=== PATIENT | male | born 1935 | race Caucasian/White ===

== ENCOUNTER 2020-01-23 13:58 | Inpatient (IN) | payer MEDICARE ==
[~2020-01-23] VITALS: Ht 162.6 cm; Wt 72.0 kg
[2020-01-23] MEDS ORDERED: SPIRONOLACTONE25 MG PO (14:13)
[2020-01-23 14:36] LABS: BASOPHILS ABSOLUTE AUTO 0.07 K/mm3 (0.00-0.23); BASOPHILS PERCENT AUTO 1 % (0-2); EOSINOPHILS PERCENT AUTO 2 % (0-6); Hematocrit 50.2 % (37.0-53.0); IMMATURE GRAN ABSOLUTE AUTO 0.03 K/mm3 (0.00-0.10); IMMATURE GRAN PERCENT AUTO 0 % (0-1); LYMPHOCYTES ABSOLUTE AUTO 2.21 K/mm3 (0.84-5.20); LYMPHOCYTES PERCENT AUTO 24 % (21-46); MONOCYTES ABSOLUTE AUTO 0.79 K/mm3 (0.16-1.47); MONOCYTES PERCENT AUTO 9 % (4-13); Mean Corpuscular HGB 27.7 pg (26.0-34.0); Mean Corpuscular HGB Conc 31.9 g/dL (31.5-36.5); Mean Corpuscular Volume 87 fL (80-100); Mean Platelet Volume 11.5 fL (9.1-12.4); NEUTROPHILS ABSOLUTE AUTO 5.82 K/mm3 (1.96-9.15); NEUTROPHILS PERCENT AUTO 64 % (41-73); Platelet Count 167 K/mm3 (150-400); RDW Coefficient Variation 14.8 % (11.7-14.2); RDW Standard Deviation 47.4 fL (35.1-46.3); Red Blood Cell Count 5.77 M/mm3 (4.30-5.90); White Blood Cell Count 9.12 K/mm3 (4.00-11.30)
[2020-01-23 14:46] LABS: Alanine Aminotransfer (ALT/SGP 21 U/L (12-78); Albumin, Blood 3.4 g/dL (3.4-5.0); Albumin/Globulin Ratio 0.9 (0.8-1.8); Alk Phos 75 U/L (50-136); Anion Gap 13 mmol/L (6-16); Aspartate Aminotrans (AST/SGOT 26 U/L (12-37); Bilirubin, Total 0.7 mg/dL (0.1-1.0); Blood Urea Nitrogen 21 mg/dL (8-24); Bun/Creatinine Ratio 13.2 (12.0-20.0); CO2, Blood 20 mmol/L (21-32); Chloride, Blood 112 mmol/L (98-108); Creatinine, Blood 1.59 mg/dL (0.60-1.20); Globulin, Blood 3.6 g/dL (2.2-4.0); Glomerular Filtration Rate 45 (60-); Glucose, Blood 106 mg/dL (70-99); Potassium, Blood 4.4 mmol/L (3.5-5.5); Sodium, Blood 145 mmol/L (136-145); Troponin I <0.015 ng/mL (0.000-0.040)
--- NOTE | 2020-01-23 18:21 | NUR ---
PT ADMITTED PT ADMITTED IN STABLE CONDITION. VITALS TAKEN. PT ORIENTED TO ROOM. CALL LIGHT IN REACH. PT DENIES CP OR SOB AT THIS TIME. TELE IN PLACE. RUNNING SINUS KLEVER WITH PVCS AT MID 40S. WILL CONTINUE TO MONITOR UNTIL TURNOVER IS COMPLETE.
[2020-01-23] MEDS ORDERED: ASPI81CH PO (18:37)
[2020-01-24 02:12] LABS: BASOPHILS ABSOLUTE AUTO 0.07 K/mm3 (0.00-0.23); BASOPHILS PERCENT AUTO 1 % (0-2); EOSINOPHILS ABSOLUTE AUTO 0.25 K/mm3 (0.00-0.68); EOSINOPHILS PERCENT AUTO 3 % (0-6); Hematocrit 46.2 % (37.0-53.0); Hemoglobin 14.4 g/dL (13.5-17.5); IMMATURE GRAN ABSOLUTE AUTO 0.05 K/mm3 (0.00-0.10); IMMATURE GRAN PERCENT AUTO 1 % (0-1); LYMPHOCYTES ABSOLUTE AUTO 2.72 K/mm3 (0.84-5.20); LYMPHOCYTES PERCENT AUTO 31 % (21-46); MONOCYTES ABSOLUTE AUTO 0.74 K/mm3 (0.16-1.47); MONOCYTES PERCENT AUTO 8 % (4-13); Mean Corpuscular HGB 27.3 pg (26.0-34.0); Mean Corpuscular HGB Conc 31.2 g/dL (31.5-36.5); Mean Corpuscular Volume 88 fL (80-100); Mean Platelet Volume 11.2 fL (9.1-12.4); NEUTROPHILS ABSOLUTE AUTO 5.03 K/mm3 (1.96-9.15); NEUTROPHILS PERCENT AUTO 57 % (41-73); Platelet Count 150 K/mm3 (150-400); RDW Coefficient Variation 14.9 % (11.7-14.2); RDW Standard Deviation 47.8 fL (35.1-46.3); Red Blood Cell Count 5.28 M/mm3 (4.30-5.90); White Blood Cell Count 8.86 K/mm3 (4.00-11.30)
[2020-01-24 02:23] LABS: Bilirubin, Total 0.3 mg/dL (0.1-1.0); Bun/Creatinine Ratio 15.2 (12.0-20.0); Creatinine, Blood 1.32 mg/dL (0.60-1.20); Magnesium, Blood 2.2 mg/dL (1.6-2.4); Potassium, Blood 4.2 mmol/L (3.5-5.5); Troponin I 0.241 ng/mL (0.000-0.040)
--- NOTE | 2020-01-24 05:31 | NUR ---
SHIFT SUMMARY PT HAS BEEN BRADYCARDIC T/O SHIFT RUNNING MOSTLY IN 40'S BUT DIPPING TO 30'S OCCASIONALLY, CALLED TO NOTIFY DR BENDER @ 0100, NEW ORDERS REC AND ENTERED, PT STATES THAT HIS HR IS NORMALLY IN THE 40'S, PT HAS DENIES CP, SOB, DIZZINESS T/O SHIFT, SLEEPING AT THIS TIME, CALL LIGHT IN REACH, WILL CONT TO MONITOR UNTIL REPORT GIVEN TO DAY RN.
--- NOTE | 2020-01-24 11:03 | NUR ---
WAS HERE AT 0945 TO CONSULT ON PATIENT. PATIENT LEFT BY W/C TO PET TRAINING INSTRUCTOR FOR A PROCEDURE AT 10 AM. [facility] AWARE HE FINISHED HIS BREAKFAST AT 0830. HE HAD NO COMPLAINTS OF PAIN, DIZZINESS OR SOB. HE HOPED TO GO HOME TODAY SO WAS SURPRISED TO NEED A PROCEDURE. HE CALLED HIS FAMILY BEFORE HE LEFT. KNEE TEDS ON BILAT. TELE SB IN THE 40'S. SEE ASSESSMENT. HIS 1 LITER OF IVF FINISHED.
[2020-01-24 11:29] LABS: International Normalized Ratio 1.05; Prothrombin Time Results 11.2 Sec (9.7-11.5)
--- NOTE | 2020-01-24 13:34 | NUR ---
PT BP ELEVATED 170'S AND HR 30-40'S NOTIFIED DR LAUGHLIN; TO PLACE NEW ORDERS. WILL CONTINUE TO MONITOR.
--- NOTE | 2020-01-24 17:44 | NUR ---
SHIFT SUMMARY RECEIVIED REPORT FROM PATTY PHILLIPS FROM MEDICAL FLOOR AND BEDSIDE REPORT FROM JACQUARD LOOM FIXER. PT TO ROOM AT 1215 POST ANGIO WITH PCI X2 STENTS. PT ORIENTED TO ROOM AND CALL LIGHT; EDUCATED ON RIGHT ARM RESTRICTIONS AND ARM BOARD. BP ELEVATED, NOTIIFED DR LAUGHLIN; ADMINISTERED NORVASC. HR 30-40; DR BECKETT AND ELENI AWARE; NO NEW ORDERS. PT CONTINUES TO BE ASYMPTOMATIC WITH HR. RIGHT ULNER SITE C/D/I; NO BLEEDING, BRUISING OR HEMATOMA NOTED. SITE AND TR BAND RECOVERED PER PROTOCOL. PT DENIES PAIN, CHEST PAIN/PRESSURE, SOB, [place] DIZZINESS. OTHER VSS. NO OTHER ACUTE CHANGES NOTED WILL CONITNUE TO MONITOR.
--- NOTE | 2020-01-24 21:58 | NUR ---
ASSUMED CARE OF PATIENT AT [facility] 1910 FROM GITA Mark RN. PATIENT ALERT AND ORIENTED X4; SBA DUE TO RIGHT ULNER ACCESS ANGIOGRAM TODAY AND RESTRICTIONS; PATIENT EDUCATED AND AWARE OF RESTRICTIONS. TEGADERM PLACED TO RIGHT ULNAR SITE AT APPROXIMATELY 1940. PATIENT DENIES PAIN, NUMBNESS, TINGLING, DIZZINESS OR NAUSEA. 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 PIV S/L. PATIENT CURRENTLY RESTING IN BED; CALL LIGHT IN REACH; BED IN LOWEST POSISTION; WILL CONTINUE TO MONITOR AND ASSESS UNTIL END OF SHIFT.
--- NOTE | 2020-01-25 06:18 | NUR ---
NO ACUTE CHANGES TO REPORT. VSS. WILL CONTINUE TO MONITOR AND ASSESS UNTIL END OF SHIFT.
[2020-01-25] MEDS ORDERED: AMLO5 PO (09:44)
[2020-01-25] MEDS ORDERED: CLOP75 PO (09:45)
--- NOTE | 2020-01-25 12:01 | NUR ---
SHIFT SUMMARY PT A&Ox4; CALM AND COOPERATIVE WITH CARE. PT RESTING IN BED DURING SHIFT. UP IN ROOM IND. PT COMPLIANT WITH ACTIVITY RESTRICTIONS FOR RUE. RIGHR ULNER SITE C/D/I; SMALL BRUISING NOTED; NO BLEEDING NOTED. PER TELE PT HR CONTINUES AT 30-40'S; ASYMPTOMATIC. VSS. NO OTHER ACUTE CHANGES. PT EDUCATED ON DISCHARGE INTRUCTIONS, MEDICATIONS AND FOLLOW UP APPOINTMENTS. PT EDUCATED ON THE IMPORTANCE OF CONTINUEING PLAVIX AND ASPIRIN AND NOTE STOPPING THESE MEDICATIONS UNLESS DISCUSSED WITH CARDILOGIST. PT EDUCATED ON POST ANGIO ACTIVITY INSTRUCTIONS AND WHAT TO DO IN CASE RIGHT ULNER SITE STARTS BLEEDING. PRESCRIPTIONS CALLED INTO [facility] [place] PER PT REQUEST. PT LEFT ROOM VIA WHEELCHAIR AT 1135; PT STABLE UPON DISCHARGE.
== END 2020-01-25 11:30 | disposition home or self-care (01) | DRG 246 ==
LOC: ER 13:58 → MEDS 13:59 → PCU 01-24 12:09
PROVIDERS: Emergency Medicine; Internal Medicine Cardiovascular Disease; ADMIT Family Medicine
PROC: 4A023N7 Measurement of Cardiac Sampling and Pressure, Left Heart, Percutaneous Approach (ICD-10-PCS; principal; 2020-01-24)
PROC: 027034Z Dilation of Coronary Artery, One Artery with Drug-eluting Intraluminal Device, Percutaneous Approach (ICD-10-PCS; 2020-01-24)
PROC: B2111ZZ Fluoroscopy of Multiple Coronary Arteries using Low Osmolar Contrast (ICD-10-PCS; 2020-01-24)
PROC: B240ZZ3 Ultrasonography of Single Coronary Artery, Intravascular (ICD-10-PCS; 2020-01-24)
DX: R55 Syncope and collapse (principal); I21.4 Non-ST elevation (NSTEMI) myocardial infarction; I25.10 Atherosclerotic heart disease of native coronary artery without angina pectoris; I10 Essential (primary) hypertension; E78.5 Hyperlipidemia, unspecified; Z86.73 Personal history of transient ischemic attack (TIA), and cerebral infarction without residual deficits
CPT/HCPCS: 36415; 71045; 71250; 76937; 80053; 83735; 84484; 85025; 85347; 85610; 86850; 86900; 86901; 92978; 92979; 93005; 93010; 93306; 93454; 96360-59; 99152; 99153; 99285-25; A9270-GY; C1725; C1753; C1769; C1874; C1887; C1894; C9600; J0461; J1644; J1650; J2250; J3010; J3480; J7030; Q9967

== ENCOUNTER → 2024-12-31 | Outpatient (CLI) | payer OTHER ==
[~2024-12-31] MED LIST: AMLO5 PO; ASPI81CH PO; CLOP75 PO; SPIRONOLACTONE25 MG PO
[2024-12-31 09:01] LABS: BASOPHILS ABSOLUTE AUTO 0.08 K/mm3 (0.00-0.23); BASOPHILS PERCENT AUTO 1 % (0-2); EOSINOPHILS ABSOLUTE AUTO 0.48 K/mm3 (0.00-0.68); EOSINOPHILS PERCENT AUTO 5 % (0-6); Hemoglobin 15.9 g/dL (13.5-17.5); IMMATURE GRAN ABSOLUTE AUTO 0.03 K/mm3 (0.00-0.10); IMMATURE GRAN PERCENT AUTO 0 % (0-1); LYMPHOCYTES ABSOLUTE AUTO 2.24 K/mm3 (0.84-5.20); LYMPHOCYTES PERCENT AUTO 25 % (21-46); MONOCYTES PERCENT AUTO 9 % (4-13); Mean Corpuscular HGB 26.9 pg (26.0-34.0); Mean Corpuscular HGB Conc 31.2 g/dL (31.5-36.5); Mean Corpuscular Volume 86 fL (80-100); Mean Platelet Volume 11.3 fL (9.1-12.4); NEUTROPHILS PERCENT AUTO 60 % (41-73); Platelet Count 147 K/mm3 (150-400); RDW Coefficient Variation 17.5 % (11.7-14.2); RDW Standard Deviation 53.5 fL (35.1-46.3); Red Blood Cell Count 5.92 M/mm3 (4.30-5.90); White Blood Cell Count 9.13 K/mm3 (4.00-11.30)
[2024-12-31 09:14] LABS: Albumin, Blood 3.6 g/dL (3.4-5.0); Albumin/Globulin Ratio 1.1 (0.8-1.8); Bilirubin, Total 2.3 mg/dL (0.1-1.0); Bun/Creatinine Ratio 24.4 (12.0-20.0); Creatinine, Blood 1.19 mg/dL (0.60-1.20); Globulin, Blood 3.3 g/dL (2.2-4.0); Total Protein, Blood 6.9 g/dL (6.4-8.2)
== END ==
LOC: LAB 08:51 → LAB SHORT 08:51
PROVIDERS: Nurse Practitioner Family
DX: I50.9 Heart failure, unspecified (principal)
CPT/HCPCS: 80053; 83880; 85025

== ENCOUNTER 2025-03-08 16:39 | Emergency (ER) | payer OTHER ==
[~2025-03-08] VITALS: Ht 175.3 cm; Wt 81.7 kg
[2025-03-08] MEDS ORDERED: EPINEPHrine HCL 4 MG in NS 250 ML IV SCH (16:45)
[2025-03-08] MEDS ORDERED: Amiodarone HCl 450 MG in NS 250 ML IV SCH (16:55)
[2025-03-08 16:57] LABS: Calcium, Ionized (POC) 0.99 mmol/L (1.10-1.46); Chloride (POC) 109 mmol/L (98-108); Creatinine (POC) 1.6 mg/dL (0.8-1.3); Glucose (ISTAT POC) 141 mg/dL (70-99); Hematocrit (POC) 56.0 % (41.0-53.0); Hemoglobin (POC) 19.0 g/dL (13.5-17.5); Potassium (POC) 5.6 mmol/L (3.5-5.5); Sodium (POC) 139 mmol/L (135-148); Total CO2 (POC) 18 mmol/L (21-32)
--- NOTE | 2025-03-08 17:54 | NUR ---
"Spiritual Care | ED Code Pt. had been brought to the ED and was recieving shocks and compressions when this supervisor drawing was brought on scene. Info gathered from ENTs indicated that Pts. spouse and daughter would be arriving soon. Met Spouse and daughter in the consult room. Facilitated a short life review. Family verbalized that they were people of charles, when the doctor requested the family join them at bedside. This supervisor drawing offered support and assisted the family in asking their questions. After several more attempts to shock the heart in rhythym, the family verbalized for no more measures to be taken. Prayed with the Pt. and family. Scripture is read. TOD was approx. 1725. After daughter stepped out, pastoral care is given as well as EOL education. Family had pre-arrangements with [employer]. While still present in ED26, the spouse made the phone call to [employer]. [employer] instructed the family and this supervisor drawing to have the hospital contact [facility] to release the body. Number is given to the charge nurse. This supervisor drawing walked the spouse to her car. Spouse verbalized gratitude for the spiritual care support."
[2025-03-08] MEDS ORDERED: Amiodarone HCl 50 MG / ML 3 ML Amp IV ONE (18:41)
[2025-03-08] MEDS ORDERED: Magnesium Sulfate 500 MG / ML 2ML Vial IV ONE (18:41)
[2025-03-08] MEDS ORDERED: Sodium Bicarb 8.4% 50 mEq Syringe IV ONE (18:41)
== END 2025-03-08 20:07 ==
LOC: ER 16:39
DX: I49.01 Ventricular fibrillation (principal); I25.10 Atherosclerotic heart disease of native coronary artery without angina pectoris; E78.5 Hyperlipidemia, unspecified; I10 Essential (primary) hypertension; Z86.73 Personal history of transient ischemic attack (TIA), and cerebral infarction without residual deficits; Z95.2 Presence of prosthetic heart valve; Z88.8 Allergy status to other drugs, medicaments and biological substances
CPT/HCPCS: 80047; 85014; 92950; 96365; 96375; 96376; 99285-25; J0165; J0282; J3475; J7050